=== PATIENT | female | born 1945 | race Caucasian/White ===

== ENCOUNTER 2018-06-02 19:20 | Inpatient (IN) ==
[2018-06-02] MEDS ORDERED: Ipratropium/Albuterol Neb 3 ML IH ONE (20:00)
[2018-06-02] MEDS ORDERED: methylPREDNISolone 125 MG/2 ML VIAL IVP ONE (20:00)
--- NOTE | 2018-06-02 20:06 | Emergency Department Note ---
Disposition Clinical Impression: Altered mental status Qualifiers: Altered mental status type: unspecified Qualified Code(s): R41.82 - Altered mental status, unspecified Dyspnea Qualifiers: Dyspnea type: unspecified Qualified Code(s): R06.00 - Dyspnea, unspecified Disposition: Still a Patient Condition: Good Altered Mental Status HPI - General Chief Complaint: ED Altered Mental Status Stated Complaint: AMS/ Fall yesterday Time Seen by Provider: 06/02/18 19:59 Source: EMS Limitations: no limitations Nursing Notes Reviewed: Yes Vital Signs Reviewed: Yes - History of Present Illness HPI Narrative: Past medical history of CAD, COPD on 2-3 L at home, hypertension, hyperlipidemia , depression. Patient presents today for evaluation of what she describes as memory loss. Patient states she cannot remember things she used to. Patient states that she feels confused. She is able to hold a conversation however she is dyspneic and diaphoretic. Patient states she typically wears to 3 L. Patient is awake alert and oriented to person and place but not time. Nursing staff says that she was picking at things in the air. Patient states she thinks that it is her oxycodone that is making her confused. At this point she will undergo further evaluation for both altered mental status as well as dyspnea. - Related Data Home Medications Medication Instructions Recorded Confirmed BuPROPion SR (12 HR) [Wellbutrin 150 mg PO DAILY 08/18/17 10/01/17 SR] Cholecalciferol (Vitamin D3) 1,000 unit PO DAILY 08/18/17 10/01/17 [Vitamin D3] Donepezil HCl [Aricept] 5 mg PO HS 08/18/17 10/01/17 Duloxetine HCl [Cymbalta] 60 mg PO DAILY 08/18/17 10/01/17 Metoprolol [Lopressor] 25 mg PO BID 08/18/17 10/01/17 OxyCODONE ER (12 HR) [OxyCONTIN] 30 mg PO Q12HR 08/18/17 10/01/17 OxyCODONE/APAP 10/325 [Percocet 1 each PO Q6HR PRN 08/18/17 10/01/17 10/325 MG] Ranitidine HCl [Acid Director Design] 150 mg PO BID 08/18/17 10/01/17 Vitamin B Complex [B Complex] 1 each PO DAILY 08/18/17 10/01/17 rOPINIRole [Requip] 1 mg PO HS 08/18/17 10/01/17 Previous Rx's Medication Instructions Recorded Ascorbic Acid [Vitamin C] 500 mg PO DAILY@0630 #30 tablet 10/04/17 Aspirin [Lo-Dose Aspirin EC] 81 mg PO Q48H #0 10/04/17 Bumetanide [Bumex] 1 mg PO DAILY #30 tablet 10/04/17 Ferrous Sulfate 325 mg PO DAILY@0630 #30 tablet 10/04/17 Gabapentin [Neurontin] 800 mg PO BID #0 10/04/17 Allergies Allergy/AdvReac Type Severity Reaction Status Date / Time pentazocine [From Talwin] Allergy Vomiting Verified 08/18/17 15:33 Review of Systems: Limited secondary to patient's medical condition. Confusion and short-term memory loss, dyspnea. Denies chest pain and abdominal pain. Past Medical History - Past Medical History Medical history: Reports: asthma, COPD, coronary artery disease, GERD, hyperlipidemia, hypertension, other Surgical history: Reports: angioplasty/stent, appendectomy, cancer surgery, hysterectomy, orthopedic, other (Foot and back surgeries) Psychiatric history: Reports: depression SPECIAL NEEDS NANNY history: Reports: cervical cancer - Social History Smoking Status: Former smoker Smokeless Tobacco Status: No Alcohol use: Reports: none Drug use: Reports: none, unknown Physical Exam General: Patient in mild respiratory distress. Head: Normocephalic Atraumatic Eyes: PERRL, EOMI ENT: Airway patent, no stridor Neck: supple, no meningismus Chest: Diffuse rhonchi and wheezing. Cardiac: Regular rhythm. Abdomen: soft, nontender, nondistended; no guarding, rebound, or tenderness to percussion Musculoskeletal: Calves symmetric, plans of tenderness bilaterally not located to just behind the calf. Skin: No rash, normal skin tone Neuro: Alert and Oriented to person, place, but not time. No focal deficit. - General Limitations: no limitations General appearance: alert, in no apparent distress Course - Reevaluation(s) Reevaluation #1: Workup for altered mental status and dyspnea have been initiated. Patient was seen at the end of my shift and will be signed out to the night physician. Vital Signs Temperature 98.6 F 06/02/18 19: Pulse Rate 88 06/02/18 19:27 Respiratory Rate 20 08/28/18 19:27 Blood Pressure 153/87 06/02/18 19:27 O2 Sat by Pulse Oximetry 94 06/02/18 19:27 Temperature 98.6 F 06/02/18 19:27 Pulse Rate 88 06/02/18 19:27 Respiratory Rate 24 06/02/18 20:21 Blood Pressure 153/87 06/02/18 19:27 O2 Sat by Pulse Oximetry 100 06/02/18 20:33 Oxygen Delivery Oxygen Delivery Room Air Altered Mental Status - Medical Records Medical records reviewed: Yes I reviewed the patient's medical records. - Lab Data Lab results reviewed: Yes I reviewed the patient's lab results. Result diagrams: 06/02/18 20:40 Lab Results 06/02/18 06/02/18 06/02/18 Range/Units 20:40 20:40 20:52 WBC 11.8 H (4.3-11.1) K/mcL RBC 3.87 (3.82-4.97) M/mcL Hgb 10.6 L (11.5-15.4) g/dL Hct 34.0 L (35.3-44.9) % MCV 87.9 (83.0-100.0) fL MCH 27.4 L (28.0-33.3) pg MCHC 31.2 L (31.6-35.5) g/dL RDW 14.6 H (11.5-14.5) % Plt Count 271 (140-400) K/mcL MPV 10.1 (9.4-12.4) fL Immature Gran % 0.4 (0-4) % Seg Neutrophils % 87.7 % Lymphocytes % 6.9 % Monocytes % 4.7 % Eosinophils % 0.1 % Basophils % 0.2 % Neutrophils # 10.4 H (1.6-8.9) K/mcL Lymphocytes # 0.8 (0.6-4.6) K/mcL Monocytes # 0.6 (0.0-1.3) K/mcL Eosinophils # 0.0 (0.0-0.6) K/mcL Basophils # 0.0 (0.0-0.2) K/mcL PT 12.0 (9.4-12.1) Seconds INR 1.1 VBG pH 7.48 H (7.32-7.42) pH Units VBG pCO2 48 (41-51) mmHg VBG pO2 181 H (25-50) mmHg VBG HCO3 35 H (21-27) mEq/L - Radiology Data Radiology results reviewed: Yes I reviewed the patient's radiology results. - EKG Data EKG attestation: Yes I reviewed and interpreted this EKG. EKG results narrative: EKG shows sinus rhythm with a ventricular rate of 88. OR interval 188. QRS 97. QTC 458. TPA Checklist - LKW: 3-4.5 hrs Add. Warnings/Precautions Patient/family understanding: The patient/family members have been counseled and understood the risk, benefit , and alternatives of treatment.
[2018-06-02] MEDS ORDERED: Ipratropium/Albuterol Neb 3 ML ONE (20:12)
[2018-06-02 20:55] LABS: VBG HCO3 35 mEq/L (21-27); VBG PCO2 48 mmHg (41-51); VBG PH 7.48 pH Units (7.32-7.42); VBG PO2 181 mmHg (25-50)
[2018-06-02 20:55] LABS: INR 1.1
[2018-06-02 21:02] LABS: Mean Platelet Volume 10.1 fL (9.4-12.4); Red Cell Distribution Width 14.6 % (11.5-14.5)
[2018-06-02 21:06] LABS: Basophils % 0.2 %; Eosinophils % 0.1 %; Hemoglobin 10.6 g/dL (11.5-15.4); Immature Granulocytes % 0.4 % (0-4); Lymphocytes # 0.8 K/mcL (0.6-4.6); Lymphocytes % 6.9 %; Mean Corpuscular HGB Conc 31.2 g/dL (31.6-35.5); Mean Corpuscular Hemoglobin 27.4 pg (28.0-33.3); Mean Corpuscular Volume 87.9 fL (83.0-100.0); Monocytes # 0.6 K/mcL (0.0-1.3); Monocytes % 4.7 %; Neutrophils # 10.4 K/mcL (1.6-8.9); Platelet Count 271 K/mcL (140-400); Red Blood Count 3.87 M/mcL (3.82-4.97); Segmented Neutrophils % 87.7 %
[2018-06-02 21:22] LABS: Alanine Aminotransferase 12 Units/L (7-52); Albumin 3.7 g/dL (3.5-5.7); Albumin/Globulin Ratio 1.2 (1.1-2.2); Alkaline Phosphatase 114 Units/L (34-104); Aspartate Amino Transferase 22 Units/L (13-39); BUN/Creatinine Ratio 18 (6-26); Bilirubin,Direct 0.1 mg/dL (0.0-0.2); Bilirubin,Indirect 0.4 mg/dL (0.0-1.2); Bilirubin,Total 0.5 mg/dL (0.3-1.0); Blood Urea Nitrogen 14 mg/dL (8-23); Carbon Dioxide 30 mEq/L (23-29); Chloride 98 mEq/L (98-107); Ethanol 12 mg/dL (Less than 10); Glucose 115 mg/dL (70-105); Osmolality,Calculated 283 (280-300); Potassium 4.3 mEq/L (3.5-5.1); Sodium 136 mEq/L (136-145); Total Protein 6.7 g/dL (6.4-8.9); Troponin I 0.04 ng/mL (< 0.04); eGFR For Non-African Americans > 60 (> 60)
[2018-06-02] MEDS ORDERED: Aspirin 325 MG TABLET PO ONE (21:27)
[2018-06-03] MEDS ORDERED: *HR* OxyCODONE ER (12 HR) 10 MG TABLET PO ONE (00:40)
[2018-06-03 00:55] LABS: Bilirubin,Urine Negative (Negative); Blood,Urine Negative (Negative); Clarity,Urine Clear (Clear); Color,Urine Yellow (Yellow); Glucose,Urine (UA) Normal (Normal); Ketones,Urine 15 mg/dL (Negative); Leukocyte Esterase,Urine Negative (Negative); Nitrite,Urine Negative (Negative); Protein,Urine Negative (Neg-Trace); Specific Gravity,Urine 1.019 (1.010-1.025); Urobilinogen,Urine Normal (Normal)
[2018-06-03 01:28] LABS: Amphetamine Screen,Urine Negative ng/mL (Cutoff=1000); Barbiturate Screen,Urine Negative ng/mL (Cutoff=200); Benzodiazepines Screen,Urine Negative ng/mL (Cutoff=200); Cannabinoid Screen,Urine Negative ng/mL (Cutoff = 50); Cocaine Screen,Urine Negative ng/mL (Cutoff= 300); Opiate Screen,Urine Positive ng/mL (Cutoff=300); Phencyclidine Screen,Urine Negative ng/mL (Cutoff=25)
[2018-06-03 01:51] LABS: Amphetamine Screen,Urine Corrected Result ng/mL (Cutoff=1000); Barbiturate Screen,Urine Corrected Result ng/mL (Cutoff=200); Benzodiazepines Screen,Urine Corrected Result ng/mL (Cutoff=200)
[2018-06-03 01:52] LABS: Cannabinoid Screen,Urine Corrected Result ng/mL (Cutoff = 50); Cocaine Screen,Urine Corrected Result ng/mL (Cutoff= 300); Opiate Screen,Urine Corrected Result ng/mL (Cutoff=300)
[2018-06-03 01:53] LABS: Phencyclidine Screen,Urine Corrected Result ng/mL (Cutoff=25)
[2018-06-03 01:54] LABS: Ur. Drug Screen Interpretation CR
[2018-06-03 07:37] LABS: Hematocrit 32.5 % (35.3-44.9); Hemoglobin 10.1 g/dL (11.5-15.4); Mean Corpuscular HGB Conc 31.1 g/dL (31.6-35.5); Mean Corpuscular Hemoglobin 27.2 pg (28.0-33.3); Mean Corpuscular Volume 87.6 fL (83.0-100.0); Mean Platelet Volume 9.9 fL (9.4-12.4); Platelet Count 236 K/mcL (140-400); Red Blood Count 3.71 M/mcL (3.82-4.97); Red Cell Distribution Width 14.6 % (11.5-14.5)
[2018-06-03 08:03] LABS: BUN/Creatinine Ratio 17 (6-26); Blood Urea Nitrogen 11 mg/dL (8-23); Carbon Dioxide 34 mEq/L (23-29); Chloride 98 mEq/L (98-107); Glucose 183 mg/dL (70-105); Osmolality,Calculated 292 (280-300); Potassium 4.1 mEq/L (3.5-5.1); Sodium 139 mEq/L (136-145); eGFR For Non-African Americans > 60 (> 60)
[2018-06-03] MEDS ORDERED: Naloxone 0.4 MG/ML INJ IVP PRN (08:47)
[2018-06-03] MEDS ORDERED: Aspirin Enteric Coated 81 MG Tablet PO SCH (09:00)
[2018-06-03] MEDS: Acetaminophen 325 MG TABLET PO PRN (10:22)
[2018-06-03] MEDS: Vitamin B Complex/Vit C/Vit E 1 EACH TABLET PO SCH (10:23)
[2018-06-03] MEDS: Cholecalciferol (D-3) 1,000 UNIT TABLET PO SCH (10:23)
[2018-06-03] MEDS: *HR* OxyCODONE ER (12 HR) 20 MG TABLET PO SCH ×2 (15:00→22:52)
[2018-06-03] MEDS: Lisinopril 20 MG TABLET PO SCH (15:02)
[2018-06-03] MEDS: Bumetanide 1 MG TABLET PO SCH (15:02)
[2018-06-03] MEDS: *HR* Heparin 5,000 UNIT/ML VIAL SQ SCH ×2 (15:03→22:53)
--- NOTE | 2018-06-03 17:45 | Internal Med History&Physical ---
Date of Encounter: 06/03/18 Time of Encounter: 12:50 Internal Medicine - H&P: HPI Chief complaint: AMS Admitted From: Home Plans for Post Hospital Care: Home History of present illness: Ms. Hidalgo is a 72 year old female with past medical history of chronic back pain, dementia, hypertension, coronary artery disease, hyperlipidemia, COPD with home O2, depression. Patient was admitted from home where she lives with her daughter for memory loss, confusion. Patient was "picking at things in the air" in the emergency department. Patient reports that she was feeling confused , but was not even able to state why she felt more confused over her normal baseline confusion. Patient primarily wants to discuss that she is having pain all over and has not had any of her pain medications. She is alert, oriented, she is she is in the hospital in May 2018. She is aware of the president is, that she has to be reminded with the month this. His any shortness of breath above her normal baseline and she denies chest pain. She denies any headache, blurred vision, difficulty with speech or swallowing, dizziness. She denies abdominal pain, chest pain, increased peripheral edema. Patient will be admitted as an inpatient and will be monitored overnight. Past Med Surg Social Fam HX - Past Medical History Medical history: asthma, COPD, coronary artery disease, GERD, hyperlipidemia, hypertension, other Additional medical history: neuropathy Psychiatric history: depression - Past Surgical History Surgical History: angioplasty/stent, appendectomy, cancer surgery, hysterectomy , orthopedic, other Additional surgical history: foot surgery, back surgery 10 times - Social History Smoking Status: Former smoker Smokeless Tobacco Status: No Alcohol use: none Drug use: none, unknown - Family History Mother Name: Madhuri Porras Living Status: Age at : 89 Cause of : [place] Hx Family Cardiac Disorders: Yes Hx Family Cancer: Yes Internal Medicine - H&P: Meds BuPROPion SR (12 HR) [Wellbutrin SR] 150 mg PO DAILY 08/18/17 [History] Cholecalciferol (Vitamin D3) [Vitamin D3] 1,000 unit PO DAILY 08/18/17 [History] Duloxetine HCl [Cymbalta] 60 mg PO DAILY 08/18/17 [History] Metoprolol [Lopressor] 37.5 mg PO BID 08/18/17 [History] OxyCODONE/APAP 10/325 [Percocet 10/325 MG] 1 tab PO Q6HR PRN 08/18/17 [History] Ranitidine HCl [Acid Corporate Representative] 150 mg PO BID 08/18/17 [History] Vitamin B Complex [B Complex] 1 tab PO DAILY 08/18/17 [History] rOPINIRole [Requip] 1 mg PO HS 08/18/17 [History] Ascorbic Acid [Vitamin C] 500 mg PO DAILY@0630 #30 tablet 10/04/17 [Rx] Aspirin [Lo-Dose Aspirin EC] 81 mg PO Q48H #0 10/04/17 [Rx] Bumetanide [Bumex] 1 mg PO DAILY #30 tablet 10/04/17 [Rx] Ferrous Sulfate 325 mg PO DAILY@0630 #30 tablet 10/04/17 [Rx] Atorvastatin Calcium [Lipitor] 20 mg PO HS 06/03/18 [History] Donepezil HCl [Aricept] 10 mg PO HS 06/03/18 [History] Gabapentin [Neurontin] 800 mg PO TID 06/03/18 [History] Isosorbide MONOnitrate (24 HR) [Imdur] 30 mg PO DAILY 06/03/18 [History] Lisinopril [Zestril] 20 mg PO DAILY 06/03/18 [History] NALOXONE 4 MG Nasal [place] [Narcan] 4 mg NS AD 06/03/18 [History] Nitroglycerin [Nitrostat] 0.4 mg SL Q5M PRN MDD [id number] CALL 911 06/03/18 [ History] Nortriptyline HCl [Nortriptyline HCl] 50 mg PO DAILY 06/03/18 [History] Omeprazole [PriLOSEC] 40 mg PO DAILY 06/03/18 [History] OxyCODONE ER (12 HR) [OxyCONTIN] 40 mg PO Q8HR 06/03/18 [History] Tizanidine HCl 4 mg PO Q8H 06/03/18 [History] 3 Allergy/AdvReac Type Severity Reaction Status Date / Time pentazocine [From Marsha] AdvReac Vomiting Verified 06/03/18 09:07 All Systems PM: A 10-system review of systems was performed and is negative for pertinent findings except as documented above in the HPI. - Constitutional Constitutional: falls, no anorexia, no chills, no night sweats, no weakness - EENT Eyes: no change in vision, no diplopia, no other visual disturbances Nose, mouth and throat: no nasal congestion, no nasal discharge, no neck pain, no sinus pressure, no sore throat - Cardiovascular Cardiovascular ROS IM: no diaphoresis, no dyspnea, no edema, no lightheadedness , no palpitations - Respiratory Respiratory: no dyspnea on exertion, no chest congestion - Gastrointestinal Gastrointestinal: no bloating, no diarrhea, no heartburn, no loose stools, no nausea, no vomiting - Genitourinary Genitourinary: no urinary frequency, no urinary hesitancy, no urinary incontinence, no urinary urgency - Integumentary Integumentary IM: no rash, no jaundice - Neurological Neurological ROS: frequent falls, memory loss, no abnormal movements, no abnormal speech, no confusion, no dizziness, no focal weakness, no headache(s), no loss of vision, no numbness, no tingling, no weakness - Psychiatric Psychiatric: no depression, no homicidal ideation, no hopelessness, no suicidal ideation - Constitutional Vitals: Temp Pulse Resp BP Pulse Ox 98.3 F 87 16 180/88 94 06/03/18 16:04 06/03/18 16:04 06/03/18 16:04 06/03/18 16:04 06/03/18 16:04 General appearance: Present: cooperative, A&O X 2, pleasant, no acute distress, obese, answers questions appropriately Exam: see above. - Head Head exam: Present: atraumatic, normal inspection, normocephalic - Eye Eye exam: Present: normal appearance, conjuntiva pink, sclera anicteric - Neck Neck exam general surgery: Present: supple, trachea midline. Absent: lymphadenopathy, tenderness - Respiratory Respiratory exam: Present: CTAB. Absent: accessory muscle use, chest wall tenderness, rales, respiratory distress, rhonchi, wheezes - Cardiovascular Cardiovascular exam: Present: RRR, +S1, +S2. Absent: diastolic murmur, gallop, rubs, systolic murmur - GI/Abdominal GI/Abdominal exam: Present: normal bowel sounds, soft, no peritoneal signs. Absent: distended, hepatomegaly, tenderness - Extremities Exam Extremities exam: Present: normal capillary refill, normal inspection, warm, radial pulses palpable and symmetrical. Absent: calf tenderness, cyanotic, pedal edema, tenderness - Neurological Exam Neurological exam: Present: alert, oriented X3, no focal deficits, strengths equal and symetr throughout. Absent: altered, motor sensory deficit, facial droop, speech deficit - Skin Skin exam: Present: dry, intact, normal color, warm. Absent: rash Internal Med - H&P Results - Labs CBC & Chem 7: 06/03/18 07:08 06/03/18 07:08 Labs: Short CBC 06/03/18 Range/Units 07:08 WBC 6.5 (4.3-11.1) K/mcL Hgb 10.1 L (11.5-15.4) g/dL Hct 32.5 L (35.3-44.9) % Plt Count 236 (140-400) K/mcL BMP 06/03/18 07:08 Sodium 139 Potassium 4.1 Chloride 98 Carbon Dioxide 34 H BUN 11 Creatinine 0.64 Glucose 183 H Calcium 9.0 Cardiac Enzymes 06/03/18 06/03/18 Range/Units 07:08 12:26 Troponin I 0.04 H* 0.04 H* (< 0.04) ng/mL - Assessment and plan (1) Elevated troponin Current Visit: Yes Status: Acute Assessment and plan: Flat, adynamic elevation of troponin. Pt denies chest pain. EKG without ischemic changes, rate 88. Unclear etiology, likely demand ischemia from COPD. Continue telemetry (2) CAD (coronary artery disease) Current Visit: Yes Status: Chronic Assessment and plan: Chronic. Patient denies chest pain. Continue aspirin, beta odalys, ACEI, Imdur, Lipitor Continue telemetry Qualifiers: Coronary Disease-Associated Artery/Lesion type: [place] artery [place] vs. transplanted heart: [place] heart Associated angina: angina presence unspecified Qualified Code(s): I25.10 - Atherosclerotic heart disease of [place] coronary artery without angina pectoris (3) HTN (hypertension) Current Visit: Yes Status: Acute Assessment and plan: Chronic. Continue home medications. Monitor vitals per admission order. Qualifiers: Hypertension type: unspecified Qualified Code(s): I10 - Essential (primary ) hypertension (4) HLD (hyperlipidemia) Current Visit: Yes Status: Acute Assessment and plan: Chronic. Continue Lipitor 20 mg daily at bedtime. Qualifiers: Hyperlipidemia type: unspecified Qualified Code(s): E78.5 - Hyperlipidemia , unspecified (5) COPD (chronic obstructive pulmonary disease) Current Visit: Yes Status: Chronic Assessment and plan: Chronic. No acute exacerbation. Lungs are clear and diminished. Patient denies any increasing cough or O2 demand. Continue bronchodilators, O2 as needed to maintain sats greater than 92%, telemetry. Qualifiers: COPD type: unspecified COPD Qualified Code(s): J44.9 - Chronic obstructive pulmonary disease, unspecified (6) Depression Current Visit: Yes Status: Chronic Assessment and plan: Chronic. Continue Cymbalta, nortriptyline, Wellbutrin. Patient denies suicidal or homicidal ideations. Qualifiers: Depression Type: unspecified Qualified Code(s): F32.9 - Major depressive disorder, single episode, unspecified (7) Altered mental status Current Visit: Yes Status: Acute Qualifiers: Altered mental status type: unspecified Qualified Code(s): R41.82 - Altered mental status, unspecified (8) Dyspnea Current Visit: Yes Status: Acute Assessment and plan: Pt with COPD, denies SOB above her baseline. Plan as above. Qualifiers: Dyspnea type: unspecified Qualified Code(s): R06.00 - Dyspnea, unspecified (9) Anemia Current Visit: Yes Status: Acute Assessment and plan: Hbg 10.1, will continue to trend overnight. Pt with anemia dating back to September,. Iron and percent saturation were decreased at that time, will continue Ferrous Sulfate Pt without signs of active bleeding Continue to monitor labs and vitals. Qualifiers: Anemia type: iron deficiency Iron deficiency anemia type: unspecified iron deficiency Qualified Code(s): D50.9 - Iron deficiency anemia, unspecified (10) DVT prophylaxis Current Visit: Yes Status: Acute Assessment and plan: Heparin SQ. Pt with iron deficiency anemia, will monitor for signs of bleeding. - Time Spent With Patient Total time spent is greater than 50% in coordination of care (as documented) at patient's floor/unit and/or counseling patient: less than 15 minutes
[2018-06-03] MEDS: Famotidine 20 MG TABLET PO SCH (22:52)
[2018-06-04 04:49] LABS: Basophils % 0.1 %; Eosinophils % 0.1 %; Hematocrit 33.3 % (35.3-44.9); Hemoglobin 10.4 g/dL (11.5-15.4); Immature Granulocytes % 0.4 % (0-4); Lymphocytes % 9.8 %; Mean Corpuscular HGB Conc 31.2 g/dL (31.6-35.5); Mean Corpuscular Hemoglobin 27.4 pg (28.0-33.3); Mean Corpuscular Volume 87.9 fL (83.0-100.0); Mean Platelet Volume 9.5 fL (9.4-12.4); Monocytes # 0.9 K/mcL (0.0-1.3); Monocytes % 9.4 %; Neutrophils # 7.8 K/mcL (1.6-8.9); Platelet Count 266 K/mcL (140-400); Red Blood Count 3.79 M/mcL (3.82-4.97); Red Cell Distribution Width 15.1 % (11.5-14.5); Segmented Neutrophils % 80.2 %
[2018-06-04 05:07] LABS: BUN/Creatinine Ratio 30 (6-26); Blood Urea Nitrogen 21 mg/dL (8-23); Carbon Dioxide 37 mEq/L (23-29); Chloride 100 mEq/L (98-107); Glucose 124 mg/dL (70-105); Osmolality,Calculated 294 (280-300); Potassium 3.7 mEq/L (3.5-5.1); Sodium 140 mEq/L (136-145); eGFR For Non-African Americans > 60 (> 60)
[2018-06-04] MEDS ORDERED: Ascorbic Acid 500 MG TABLET PO SCH (06:30)
[2018-06-04] MEDS: *HR* Heparin 5,000 UNIT/ML VIAL SQ SCH ×2 (06:39→13:57)
[2018-06-04] MEDS ORDERED: Isosorbide MONOnitrate (24 HR) 30 MG TAB.ER.24H PO SCH (09:00)
[2018-06-04] MEDS ORDERED: BuPROPion SR (12 HR) 150 MG TABLET PO SCH (09:00)
[2018-06-04] MEDS: Bumetanide 1 MG TABLET PO SCH (09:01)
[2018-06-04] MEDS: Cholecalciferol (D-3) 1,000 UNIT TABLET PO SCH (09:01)
[2018-06-04] MEDS: Acetaminophen 325 MG TABLET PO PRN ×2 (09:01→16:00)
[2018-06-04] MEDS: *HR* OxyCODONE ER (12 HR) 20 MG TABLET PO SCH (09:01)
[2018-06-04] MEDS: Famotidine 20 MG TABLET PO SCH (09:02)
[2018-06-04] MEDS: Lisinopril 20 MG TABLET PO SCH (09:02)
[2018-06-04] MEDS: Vitamin B Complex/Vit C/Vit E 1 EACH TABLET PO SCH (09:02)
[2018-06-04 10:42] VITALS: BP 123/78
--- NOTE | 2018-06-04 13:21 | Discharge Summary ---
- NOTES TO OUTPATIENT PROVIDER Notes to Outpatient Provider: Pt admitted for AMS secondary to narcotic sedation. Recommend pt have a reduction in pain medication to avoid repeat episodes. Date of Encounter: 06/04/18 Time of Encounter: 12:00 - Discharge Diagnosis (1) Altered mental status Priority: Secondary Status: Acute Assessment and Plan: Resolved. Pt has returned to baseline mentation and is able to answer questions appropriately. Narcotic pain medications have been decreased and pt is back to baseline. Head CT negative, labs and vitals stable and WNL Urine negative for infection, chest xray negative for infiltrates/consolidation. REcommend that PCP review medications and decrease doses to prevent sedation and AMS, falls, confusion. Qualifiers: Altered mental status type: unspecified Qualified Code(s): R41.82 - Altered mental status, unspecified (2) Elevated troponin Priority: Secondary Status: Acute Assessment and Plan: Flat, adynamic elevation of troponin. Pt denies chest pain. EKG without ischemic changes, rate 88. Unclear etiology, likely demand ischemia from COPD. (3) CAD (coronary artery disease) Priority: Secondary Status: Chronic Assessment and Plan: Chronic. Patient denies chest pain. Continue aspirin, beta odalys, ACEI, Imdur, Lipitor Qualifiers: Coronary Disease-Associated Artery/Lesion type: [place] artery [place] vs. transplanted heart: [place] heart Associated angina: angina presence unspecified Qualified Code(s): I25.10 - Atherosclerotic heart disease of [place] coronary artery without angina pectoris (4) HTN (hypertension) Priority: Secondary Status: Chronic Assessment and Plan: Chronic. Continue home medications. Qualifiers: Hypertension type: unspecified Qualified Code(s): I10 - Essential (primary ) hypertension (5) HLD (hyperlipidemia) Priority: Secondary Status: Chronic Assessment and Plan: Chronic. Continue Lipitor 20 mg daily at bedtime. Qualifiers: Hyperlipidemia type: unspecified Qualified Code(s): E78.5 - Hyperlipidemia , unspecified (6) COPD (chronic obstructive pulmonary disease) Priority: Secondary (the dynamic is he will) Status: Chronic Assessment and Plan: Chronic. No acute exacerbation. Lungs are clear and diminished. Patient denies any increasing cough or O2 demand. Continue home medications Qualifiers: COPD type: unspecified COPD Qualified Code(s): J44.9 - Chronic obstructive pulmonary disease, unspecified (7) Depression Priority: Secondary Status: Chronic Assessment and Plan: Chronic. Continue Cymbalta, nortriptyline, Wellbutrin. Qualifiers: Depression Type: unspecified Qualified Code(s): F32.9 - Major depressive disorder, single episode, unspecified (8) Dyspnea Priority: Secondary Status: Acute Assessment and Plan: Pt with COPD, denies SOB above her baseline. See above for COPD Qualifiers: Dyspnea type: unspecified Qualified Code(s): R06.00 - Dyspnea, unspecified (9) Anemia Priority: Secondary Status: Chronic Assessment and Plan: Hbg stable. Pt with anemia dating back to September,. Iron and percent saturation were decreased at that time, will continue Ferrous Sulfate Pt without signs of active bleeding Qualifiers: Anemia type: iron deficiency Iron deficiency anemia type: unspecified iron deficiency Qualified Code(s): D50.9 - Iron deficiency anemia, unspecified (10) DVT prophylaxis Priority: Secondary Status: Acute Assessment and Plan: Heparin SQ. Pt with iron deficiency anemia, will monitor for signs of bleeding. Hospital course: Please see assessment and plan for hospital course. Discharge discussed with: patient - Time Spent with Patient Total time spent providing and/or coordinating discharge services: Less than 30 minutes - Discharge Medications Home Medications: BuPROPion SR (12 HR) [Wellbutrin SR] 150 mg PO DAILY 08/18/17 [History] Cholecalciferol (Vitamin D3) [Vitamin D3] 1,000 unit PO DAILY 08/18/17 [History] Duloxetine HCl [Cymbalta] 60 mg PO DAILY 08/18/17 [History] Metoprolol [Lopressor] 37.5 mg PO BID 08/18/17 [History] OxyCODONE/APAP 10/325 [Percocet 10/325 MG] 1 tab PO Q6HR PRN 08/18/17 [History] Ranitidine HCl [Acid Logistics Manager] 150 mg PO BID 08/18/17 [History] Vitamin B Complex [B Complex] 1 tab PO DAILY 08/18/17 [History] rOPINIRole [Requip] 1 mg PO HS 08/18/17 [History] Ascorbic Acid [Vitamin C] 500 mg PO DAILY@0630 #30 tablet 10/04/17 [Rx] Aspirin [Lo-Dose Aspirin EC] 81 mg PO Q48H #0 10/04/17 [Rx] Bumetanide [Bumex] 1 mg PO DAILY #30 tablet 10/04/17 [Rx] Ferrous Sulfate 325 mg PO DAILY@0630 #30 tablet 10/04/17 [Rx] Atorvastatin Calcium [Lipitor] 20 mg PO HS 06/03/18 [History] Donepezil HCl [Aricept] 10 mg PO HS 06/03/18 [History] Gabapentin [Neurontin] 800 mg PO TID 06/03/18 [History] Isosorbide MONOnitrate (24 HR) [Imdur] 30 mg PO DAILY 06/03/18 [History] Lisinopril [Zestril] 20 mg PO DAILY 06/03/18 [History] NALOXONE 4 MG Nasal [place] [Narcan] 4 mg NS AD 06/03/18 [History] Nitroglycerin [Nitrostat] 0.4 mg SL Q5M PRN MDD [id number] CALL 911 06/03/18 [ History] Nortriptyline HCl 50 mg PO DAILY 06/03/18 [History] Omeprazole [PriLOSEC] 40 mg PO DAILY 06/03/18 [History] OxyCODONE ER (12 HR) [OxyCONTIN] 40 mg PO Q8HR 06/03/18 [History] Tizanidine HCl 4 mg PO Q8H 06/03/18 [History] Allergies/Adverse Reactions: 3 Allergy/AdvReac Type Severity Reaction Status Date / Time pentazocine [From Marsha] AdvReac Vomiting Verified 06/03/18 09:07 Date of admission: 06/03/18 17:41 Primary care physician: Ellen Thomas, DO Consults: 06/03/18 17:43 Consult to Occupational Therapy [CONS] Routine Comment: Evaluate, develop and implement POC Reason for Consult: evaluation Does patient have active BEDREST order?: No Is patient medically & hemodynamically stable?: Yes Patient assessed for mobility or mobilized this visit?: Yes Consult to Physical Therapy [CONS] Routine Comment: Evaluate, develop and implement POC Reason for Consult: evaluation Does patient have active BEDREST order?: No Is patient medically & hemodynamically stable?: Yes Patient assessed for mobility or mobilized this visit?: Yes Discharging clinician: Stephanie Saldana Anticipated date of discharge: 06/04/18 - Constitutional Vitals: Temp Pulse Resp BP Pulse Ox 97.6 F 73 16 123/78 98 06/04/18 10:40 06/04/18 10:40 06/04/18 10:40 06/04/18 10:40 06/04/18 10:40 General appearance: Present: cooperative, A&O X 2, pleasant, no acute distress, obese, answers questions appropriately Exam: see above. - Head Head exam: Present: atraumatic, normal inspection, normocephalic - Eye Eye exam: Present: normal appearance, conjuntiva pink, sclera anicteric - Neck Neck exam general surgery: Present: supple, trachea midline. Absent: lymphadenopathy, tenderness - Respiratory Respiratory exam: Present: CTAB. Absent: accessory muscle use, chest wall tenderness, rales, respiratory distress, rhonchi, wheezes - Cardiovascular Cardiovascular exam: Present: RRR, +S1, +S2. Absent: diastolic murmur, gallop, rubs, systolic murmur - GI/Abdominal GI/Abdominal exam: Present: normal bowel sounds, soft. Absent: distended, hepatomegaly, tenderness - Extremities Exam Extremities exam: Present: normal capillary refill, normal inspection, warm, radial pulses palpable and symmetrical. Absent: calf tenderness, cyanotic, pedal edema, tenderness - Neurological Exam Neurological exam: Present: alert, oriented X3, no focal deficits. Absent: facial droop, speech deficit - Skin Skin exam: Present: dry, intact, normal color, warm. Absent: rash - Patient Status Disposition: Home, Self-Care Condition: Good Functional capacity at discharge: uses cane/walker Overall status at discharge: patient is progressing back to baseline - Discharge Instructions Follow Up With: Ellen Thomas DO [Primary Care Provider] - Additional Instructions: Follow up with your PCP in the next 3-5 days for a recheck. Take your medications as directed. Return to the ER as needed for any other problems or concerns, or if your symptoms return or worsen. Resume your normal medications and return to your normal diet and activties as tolerated. I would recommend slowly trying to decrease your narcotic pain medications to avoid further episodes of confusion and sedation. Talk with your PCP regarding weaning from pain medications and other treatment options. - Diet and Activity Activity: increase activity as tolerated Diet: advance to your usual diet
--- NOTE | 2018-06-08 14:01 | Electrocardiograph Report ---
[address] [address] Test Date: 2018-06-02 Pat Name: Dianelys Hidalgo Department: EXAM3 Room: 3B54 Gender: F Desk Maker: : 1945 Requested By: [id number] Order Number: [id number] Reading MD: Kevan Cabrera Measurements Intervals [place] Rate: 88 P: 70 [place]: 188 QRS: 60 QRSD: 97 T: 64 QT: 378 QTc: 458 Interpretive Statements Sinus rhythm Electronically Signed On 06-08-2018 13:59:31 EDT by Kevan Cabrera
== END 2018-06-04 16:46 | disposition home or self-care (01) | DRG 948 ==
LOC: EMEROOARM 19:20 → 3BNU 19:20
PROVIDERS: ADMIT Family Medicine; ATTEND Family Medicine

== ENCOUNTER 2022-02-09 20:20 | Inpatient (IN) ==
[2022-02-10] MEDS ORDERED: Naloxone 0.4 MG/ML INJ IVP PRN (01:57)
[2022-02-10] MEDS ORDERED: Ipratropium/Albuterol Neb 3 ML IH PRN (02:05)
[2022-02-10] MEDS: 0.9 % Sodium Chloride 1,000 ML IVC SCH ×2 (02:31→18:28)
[2022-02-10] MEDS: Acetaminophen 325 MG TABLET PO PRN ×2 (02:36→10:34)
[2022-02-10] MEDS ORDERED: Baclofen 10 MG TABLET PO PRN (03:39)
[2022-02-10] MEDS ORDERED: tiZANidine 4 MG TABLET PO SCH (03:45)
[2022-02-10 04:24] LABS: Basophils % 0.3 %; Eosinophils # 0.1 K/mcL (0.0-0.6); Hematocrit 34.5 % (35.3-44.9); Hemoglobin 11.2 g/dL (11.5-15.4); Immature Granulocytes % 0.4 % (0-4); Lymphocytes % 9.3 %; Mean Corpuscular HGB Conc 32.5 g/dL (31.6-35.5); Mean Corpuscular Hemoglobin 31.2 pg (28.0-33.3); Mean Corpuscular Volume 96.1 fL (83.0-100.0); Monocytes # 0.8 K/mcL (0.0-1.3); Monocytes % 7.5 %; Neutrophils # 8.8 K/mcL (1.6-8.9); Platelet Count 230 K/mcL (140-400); Red Blood Count 3.59 M/mcL (3.82-4.97); Red Cell Distribution Width 13.5 % (11.5-14.5); Segmented Neutrophils % 81.5 %; White Blood Count 10.7 K/mcL (4.3-11.1)
[2022-02-10 04:32] LABS: INR 1.1; Prothrombin Time 11.9 Seconds (9.4-12.1)
[2022-02-10 04:44] LABS: BUN/Creatinine Ratio 18 (6-26); Blood Urea Nitrogen 17 mg/dL (8-23); Calcium 8.6 mg/dL (8.6-10.3); Carbon Dioxide 27 mEq/L (23-29); Chloride 100 mEq/L (98-107); Chol/HDL Ratio 2.3 (0-4.9); Cholesterol 120 mg/dL (< 200); Glucose 161 mg/dL (70-105); HDL Cholesterol 53 mg/dL (40-59); LDL Cholesterol,Calculated 46 mg/dL (< 100); Magnesium 1.6 mg/dL (1.6-2.6); Osmolality,Calculated 283 (280-300); Phosphorous 2.7 mg/dL (2.7-4.5); Sodium 134 mEq/L (136-145); Triglycerides 105 mg/dL (< 150); eGFR For African Americans > 60 (> 60); eGFR For Non-African Americans 59 (> 60)
[2022-02-10 04:46] LABS: Albumin 3.2 g/dL (3.5-5.7); Albumin/Globulin Ratio 1.5 (1.1-2.2); Bilirubin,Direct 0.1 mg/dL (0.0-0.2); Bilirubin,Indirect 0.4 mg/dL (0.0-1.0); Bilirubin,Total 0.5 mg/dL (0.3-1.0); Globulin 2.2 g/dL (2.4-3.5); Total Protein 5.4 g/dL (6.4-8.9)
[2022-02-10 04:51] LABS: Procalcitonin 0.39 ng/mL (0.00-0.15)
[2022-02-10 05:01] LABS: Thyroid Stimulating Hormone 8.635 mcIU/mL (0.340-5.600)
[2022-02-10 06:19] LABS: Estimated Average Glucose 131 mg/dl; Hemoglobin A1C 6.2 %
[2022-02-10] MEDS: MetroNIDAZOLE 500 MG/100 ML 500 MG/100 ML BAG IVPB SCH ×2 (08:25→16:47)
[2022-02-10] MEDS: rOPINIRole 1 MG TABLET PO SCH ×2 (08:35→20:22)
[2022-02-10 15:00] LABS: Bilirubin,Urine Negative (Negative); Blood,Urine Trace (Negative); Clarity,Urine Clear (Clear); Color,Urine Yellow (Yellow); Glucose,Urine (UA) Normal (Normal); Hyaline Casts,Urine Few per lpf (None Seen); Ketones,Urine Negative (Negative); Leukocyte Esterase,Urine Large (Negative); Mucus,Urine Few per lpf (None-Few); Nitrite,Urine Negative (Negative); Protein,Urine 70 mg/dL (Neg-Trace); Specific Gravity,Urine 1.028 (1.010-1.025); Squamous Epithelial Cell,Urine Few per hpf (None-Few); WBC,Urine 15-30 per hpf (0-3)
[2022-02-10] MEDS: *HR* OxyCODONE Immed Rel 15 MG TABLET PO PRN ×2 (16:27→20:23)
[2022-02-11] MEDS: MetroNIDAZOLE 500 MG/100 ML 500 MG/100 ML BAG IVPB SCH ×2 (00:24→07:58)
[2022-02-11] MEDS: *HR* OxyCODONE Immed Rel 15 MG TABLET PO PRN ×5 (00:24→20:59)
[2022-02-11] MEDS: rOPINIRole 1 MG TABLET PO SCH ×2 (07:59→20:56)
[2022-02-11] MEDS ORDERED: Ergocalciferol (VIT D2) 50,000 UNIT (1.25MG) CAP PO SCH (16:15)
[2022-02-11] MEDS: Cholecalciferol (D-3) 1,000 UNIT (25MCG) TABLET PO SCH (16:58)
[2022-02-11] MEDS: metroNIDAZOLE 500 MG TABLET PO SCH ×2 (16:58→20:57)
[2022-02-12] MEDS: *HR* OxyCODONE Immed Rel 15 MG TABLET PO PRN ×5 (01:27→20:18)
[2022-02-12] MEDS: Acetaminophen 325 MG TABLET PO PRN (08:58)
[2022-02-12] MEDS: rOPINIRole 1 MG TABLET PO SCH ×2 (09:00→22:17)
[2022-02-12] MEDS: metroNIDAZOLE 500 MG TABLET PO SCH ×3 (09:00→22:19)
[2022-02-12] MEDS: Cholecalciferol (D-3) 1,000 UNIT (25MCG) TABLET PO SCH (09:00)
[2022-02-13] MEDS: *HR* OxyCODONE Immed Rel 15 MG TABLET PO PRN ×5 (01:48→23:30)
[2022-02-13] MEDS ORDERED: Nitroglycerin 0.4 MG TAB.SUBL SL PRN (07:17)
[2022-02-13] MEDS: Cholecalciferol (D-3) 1,000 UNIT (25MCG) TABLET PO SCH (08:16)
[2022-02-13] MEDS: rOPINIRole 1 MG TABLET PO SCH ×2 (08:16→19:58)
[2022-02-13] MEDS: metroNIDAZOLE 500 MG TABLET PO SCH ×3 (08:17→19:58)
[2022-02-13] MEDS: Ondansetron 4 MG/2 ML VIAL IVP PRN (08:18)
[2022-02-13] MEDS: Acetaminophen 325 MG TABLET PO PRN (08:32)
[2022-02-13] MEDS: Gabapentin 400 MG CAPSULE PO SCH ×4 (08:36→19:57)
[2022-02-13] MEDS ORDERED: NON-FORMULARY MEDICATION 1 EACH EACH (Duloxetine Hcl [Cymbalta] 60 MG Capsule.Dr) PO SCH (09:00)
[2022-02-14] MEDS: Ondansetron 4 MG/2 ML VIAL IVP PRN (01:45)
[2022-02-14] MEDS: *HR* OxyCODONE Immed Rel 15 MG TABLET PO PRN ×4 (03:47→18:31)
[2022-02-14] MEDS: rOPINIRole 1 MG TABLET PO SCH (09:37)
[2022-02-14] MEDS: Gabapentin 400 MG CAPSULE PO SCH ×3 (09:38→16:38)
[2022-02-14] MEDS: Cholecalciferol (D-3) 1,000 UNIT (25MCG) TABLET PO SCH (09:39)
[2022-02-14] MEDS: metroNIDAZOLE 500 MG TABLET PO SCH ×2 (09:39→14:25)
[2022-02-14] MEDS ORDERED: *HR* Heparin 5,000 UNIT/ML VIAL SQ SCH (14:45)
[2022-02-14 14:51] VITALS: TEMP 98.2
[2022-02-14 17:03] LABS: Adenovirus Not Detected (Not Detect); Bordetella Pertussis Not Detected (Not Detect); Chlamydophila pneumoniae Not Detected (Not Detect); Coronavirus 229E Not Detected (Not Detect); Coronavirus HKU1 Not Detected (Not Detect); Coronavirus NL63 Not Detected (Not Detect); Coronavirus OC43 Not Detected (Not Detect); Human Metapneumovirus Not Detected (Not Detect); Human Rhinovirus/Enterovirus Not Detected (Not Detect); Influenza A Subtype 2009 H1 Not Detected (Not Detect); Influenza B Not Detected (Not Detect); Mycoplasma pneumoniae Not Detected (Not Detect); Parainfluenza Virus 1 Not Detected (Not Detect); Parainfluenza Virus 2 Not Detected (Not Detect); Parainfluenza Virus 3 Not Detected (Not Detect); Parainfluenza Virus 4 Not Detected (Not Detect); Respiratory Syncytial Virus Not Detected (Not Detect); SARS-CoV-2 Not Detected (Not Detect)
[2022-02-14 19:23] VITALS: BP 115/68
[2022-02-14 19:45] VITALS: PULSE 86; O2SAT 97
== END 2022-02-14 19:40 | DRG 682 ==
LOC: 3NENU → SUATTDRO 02-10 00:32
PROVIDERS: ADMIT Internal Medicine; ATTEND Internal Medicine